=== PATIENT | male | born 1955 | race Caucasian/White ===

== ENCOUNTER 2021-12-14 02:01 | Outpatient (CLI) | payer MEDICARE, OTHER, SELFPAY ==
[2021-12-14 21:41] LABS: PSA, Screening 6.7 ng/mL (<=4.5)
== END 2021-12-14 02:02 | disposition home or self-care (01) ==
LOC: LBO 02:04
PROVIDERS: PCP Nurse Practitioner Family; Visit Provider Nurse Practitioner Family
DX: R35.0 Frequency of micturition (principal); Z12.5 Encounter for screening for malignant neoplasm of prostate
CPT/HCPCS: 36415; 84153

== ENCOUNTER 2022-12-25 02:34 | Outpatient (CLI) | payer MEDICARE, OTHER, SELFPAY ==
[2022-12-25 13:01] LABS: Anion Gap 6.3 mmol/L (3-11); BUN 19 mg/dL (7-18); CO2 31.7 mmol/L (21.0-32.0); Calcium 9.3 mg/dL (8.5-10.1); Chloride 107 mmol/L (98-107); Estimated GFR 81.98 (mL/min/1.73m2); Glucose 76 mg/dL (74-106); Potassium 3.9 mmol/L (3.5-5.1); Sodium 145 mmol/L (136-145)
[2022-12-26 17:26] LABS: Free PSA/PSA Ratio 0.19 ratio
== END 2022-12-25 02:35 | disposition home or self-care (01) ==
LOC: LOS 02:34
PROVIDERS: PCP Nurse Practitioner Family; Visit Provider Nurse Practitioner Family
DX: I10 Essential (primary) hypertension (principal); R97.20 Elevated prostate specific antigen [PSA]
CPT/HCPCS: 36415; 80048; 84154

== ENCOUNTER 2023-07-09 03:08 | Outpatient (CLI) | payer MEDICARE, OTHER, SELFPAY ==
[2023-07-09 23:05] LABS: PSA, Screening 7.8 ng/mL (<=4.5)
== END 2023-07-09 03:09 | disposition home or self-care (01) ==
LOC: LOS 03:08
PROVIDERS: PCP Nurse Practitioner Family; Visit Provider Nurse Practitioner Family
DX: R97.20 Elevated prostate specific antigen [PSA] (principal); Z12.5 Encounter for screening for malignant neoplasm of prostate
CPT/HCPCS: 36415; 84153

== ENCOUNTER → 2023-09-16 10:41 | Outpatient (BNVA) | payer MEDICARE, OTHER, SELFPAY | PROVIDERS: PCP Nurse Practitioner Family; Referring Provider Nurse Practitioner Family; Visit Provider Nurse Practitioner Gerontology | DX: R10.31 Right lower quadrant pain (principal); R97.20 Elevated prostate specific antigen [PSA] | CPT/HCPCS: 51798; 81003; 99205 ==

== ENCOUNTER → 2023-09-30 12:51 | Outpatient (BNVA) | payer MEDICARE, OTHER, SELFPAY | PROVIDERS: PCP Nurse Practitioner Family; Referring Provider Nurse Practitioner Gerontology; Visit Provider Surgery | DX: R10.31 Right lower quadrant pain (principal) | CPT/HCPCS: 99214 ==

== ENCOUNTER → 2023-10-10 00:43 | Outpatient (CLI) | payer MEDICARE, OTHER, SELFPAY ==
--- NOTE | 2023-10-10 08:00 | DI.CT_ITS ---
Exam(s) CT ABDOMEN PELVIS W EXAM: CT ABDOMEN PELVIS W CLINICAL HISTORY: pain and bulging of mesh at previous right hernia TECHNIQUE: Imaging Protocol: Axial computed tomography images with coronal and sagittal reformatted images were created and reviewed. CONTRAST MATERIAL: Intravenous: Omnipaque 350 Contrast volume:100 mL Oral: Yes COMPARISON: No exams were available for comparison FINDINGS: ABDOMEN: Lung Bases: Normal where visualized. Liver: Normal density. No measurable mass. Portal, Superior Mesenteric, and Splenic Veins: Unremarkable. Gallbladder and Biliary Tract: No radiodense calculus or dilation. Pancreas: Normal density, no abnormal calcifications or inflammatory process. Spleen: Normal. Adrenals: No suspicious adrenal nodule. Kidneys: Normal size, contour and axis. 5 mm nonobstructing stone in the lower pole of the left kidne y. No masses seen. Abdominal Aorta: Abdominal portion non-dilated. Atherosclerosis. Bowel: No obstruction or bowel wall thickening. Appendix is unremarkable. Peritoneal Cavity: No ascites, collection or mesenteric inflammatory response. No free air. Lymph Nodes: Within normal limits. Bones: Within normal limits for the patient's age. The patient has a right total hip replacement. T here is grade 1 anterolisthesis of L5 on S1. Soft Tissues: There is soft tissue thickening seen in the right inguinal region most consistent with prior right inguinal hernia repair. There is no evidence of a recurrent right inguinal hernia. No r ight inguinal adenopathy is seen. PELVIS: Bladder: There is diffuse thickening of the wall of the urinary bladder which may be due to chronic b ladder outlet obstruction, neurogenic bladder. Neoplasm is considered less likely but cannot be excl uded. Cystitis should also be come included in the differential. Clinical correlation is recommende d. Reproductive Organs: Marked prostatic enlargement. Lymph Nodes: Within normal limits. Bones: Within normal limits for the patient's age. IMPRESSION: 1. Postsurgical changes of a prior right inguinal hernia repair. No evidence of a recurrent right in guinal hernia. 2. Marked prostatic enlargement. 3. Diffuse thickening of the wall of the urinary bladder. This may be due to chronic bladder outlet obstruction secondary to the enlarged prostate gland. Cystitis or neoplasm cannot be entirely exclud ed. Please correlate clinically. 4. Left nephrolithiasis. No obstructive uropathy. RADIATION DOSE DELIVERED: 603.2mGy.cm Total DLP DATA REPOSITORY: All CT scans at this facility are submitted to the National Radiology Data Registry (NRDR) Dose Index Registry (DIR) with the [employer] ([employer]). RADIATION OPTIMIZATION: All CT scans at this facility use at least one of these dose optimization te chniques: automated exposure control; mA and/or kV adjustment per patient size (includes targeted exa ms where dose is matched to clinical indication); or iterative reconstruction.
[2023-10-10 13:30] LABS: CREATININE 0.9 mg/dL (0.70-1.30); Estimated GFR 92.45 (mL/min/1.73m2)
[2023-10-10] MEDS: Barium Sulfate 2% W/V-Creamy Vanilla Smoothie 450 ML BTL PO ×2 (14:47→15:12)
[2023-10-10] MEDS: Normal Saline - Diluent 50 ML VIAL IJ (15:09)
[2023-10-10] MEDS: Omnipaque 350 MG/ML 100 ML BTL IJ (15:09)
== END ==
PROVIDERS: PCP Nurse Practitioner Family; Visit Provider Surgery
DX: Z98.890 Other specified postprocedural states (principal); R10.9 Unspecified abdominal pain
CPT/HCPCS: 74177; 82565; J3490

== ENCOUNTER → 2023-10-27 13:49 | Outpatient (BNVA) | payer MEDICARE, OTHER, SELFPAY | PROVIDERS: PCP Nurse Practitioner Family; Visit Provider Surgery | DX: R10.31 Right lower quadrant pain (principal); Z96.641 Presence of right artificial hip joint | CPT/HCPCS: 99213 ==

== ENCOUNTER 2023-12-10 04:16 | Outpatient (CLI) | payer MEDICARE, OTHER, SELFPAY ==
[2023-12-10 20:04] LABS: PSA, Diagnostic 8.7 ng/mL (<=4.5)
== END 2023-12-10 04:17 | disposition home or self-care (01) ==
LOC: LBO 04:16
PROVIDERS: PCP Nurse Practitioner Family; Visit Provider Nurse Practitioner Gerontology
DX: R97.20 Elevated prostate specific antigen [PSA] (principal)
CPT/HCPCS: 36415; 84153

== ENCOUNTER → 2023-12-17 10:23 | Outpatient (BNVA) | payer MEDICARE, OTHER, SELFPAY | PROVIDERS: PCP Nurse Practitioner Family; Referring Provider Nurse Practitioner Family; Visit Provider Nurse Practitioner Gerontology | DX: R10.31 Right lower quadrant pain (principal); R97.20 Elevated prostate specific antigen [PSA] | CPT/HCPCS: 51798; 99213 ==

== ENCOUNTER → 2024-01-12 07:54 | Outpatient (BNVA) | payer MEDICARE, OTHER, SELFPAY | PROVIDERS: PCP Nurse Practitioner Family; Referring Provider Nurse Practitioner Family; Visit Provider Nurse Practitioner Gerontology | DX: N40.1 Benign prostatic hyperplasia with lower urinary tract symptoms (principal); N13.8 Other obstructive and reflux uropathy; R97.20 Elevated prostate specific antigen [PSA] | CPT/HCPCS: 99213 ==

== ENCOUNTER 2024-01-15 05:17 | Outpatient (CLI) | payer MEDICARE, OTHER, SELFPAY ==
[2024-01-15 13:05] LABS: Calculated LDL 90 mg/dL (<100); Cholesterol 161 mg/dL (<200); HDL Cholesterol 64 mg/dL (40-60); Triglyceride 37 mg/dL (<150)
== END 2024-01-15 05:18 | disposition home or self-care (01) ==
LOC: LOS 05:17
PROVIDERS: PCP Nurse Practitioner Family; Visit Provider Nurse Practitioner Family
DX: Z13.6 Encounter for screening for cardiovascular disorders (principal)
CPT/HCPCS: 36415; 80061

== ENCOUNTER 2024-07-05 03:12 | Outpatient (CLI) | payer MEDICARE, OTHER, SELFPAY | END 2024-07-05 03:13 | disposition home or self-care (01) | LOC: LBO 03:12 | PROVIDERS: PCP Nurse Practitioner Family; Visit Provider Nurse Practitioner Gerontology | DX: R97.20 Elevated prostate specific antigen [PSA] (principal) | CPT/HCPCS: 36415; 84153 ==

== ENCOUNTER → 2024-07-12 08:29 | Outpatient (BNVA) | payer MEDICARE, OTHER, SELFPAY | PROVIDERS: PCP Nurse Practitioner Family; Referring Provider Nurse Practitioner Family; Visit Provider Nurse Practitioner Gerontology | DX: N40.1 Benign prostatic hyperplasia with lower urinary tract symptoms (principal); N13.8 Other obstructive and reflux uropathy; R97.20 Elevated prostate specific antigen [PSA]; I10 Essential (primary) hypertension | CPT/HCPCS: 51798; 99213 ==

== ENCOUNTER 2025-01-03 04:32 | Outpatient (CLI) | payer MEDICARE, OTHER, SELFPAY ==
[2025-01-03 22:06] LABS: PSA, Diagnostic 12.3 ng/mL (<=6.5)
== END 2025-01-03 04:33 | disposition home or self-care (01) ==
LOC: LBO 04:32
PROVIDERS: PCP Nurse Practitioner Family; Visit Provider Nurse Practitioner Gerontology
DX: N40.1 Benign prostatic hyperplasia with lower urinary tract symptoms (principal); N13.8 Other obstructive and reflux uropathy; R97.20 Elevated prostate specific antigen [PSA]
CPT/HCPCS: 36415; 84153

== ENCOUNTER → 2025-01-10 14:47 | Outpatient (BNVA) | payer MEDICARE, OTHER, SELFPAY | PROVIDERS: PCP Nurse Practitioner Family; Referring Provider Nurse Practitioner Family; Visit Provider Nurse Practitioner Gerontology | DX: R97.20 Elevated prostate specific antigen [PSA] (principal); N40.1 Benign prostatic hyperplasia with lower urinary tract symptoms; N13.8 Other obstructive and reflux uropathy; Z80.42 Family history of malignant neoplasm of prostate; I10 Essential (primary) hypertension; R39.9 Unspecified symptoms and signs involving the genitourinary system | CPT/HCPCS: 99214; 51798 ==

== ENCOUNTER 2025-04-12 02:05 | Outpatient (CLI) | payer MEDICARE, OTHER, SELFPAY ==
[2025-04-12 22:24] LABS: PSA, Diagnostic 15.5 ng/mL (<=6.5)
== END 2025-04-12 02:06 | disposition home or self-care (01) ==
LOC: LBO 02:05
PROVIDERS: PCP Nurse Practitioner Family; Visit Provider Nurse Practitioner Gerontology
DX: N40.1 Benign prostatic hyperplasia with lower urinary tract symptoms (principal); N13.8 Other obstructive and reflux uropathy; R97.20 Elevated prostate specific antigen [PSA]; Z80.42 Family history of malignant neoplasm of prostate
CPT/HCPCS: 36415; 84153

== ENCOUNTER → 2025-04-19 14:51 | Outpatient (BNVA) | payer MEDICARE, OTHER, SELFPAY | PROVIDERS: PCP Nurse Practitioner Family; Referring Provider Nurse Practitioner Family; Visit Provider Nurse Practitioner Gerontology | DX: N40.1 Benign prostatic hyperplasia with lower urinary tract symptoms (principal); N13.8 Other obstructive and reflux uropathy; R97.20 Elevated prostate specific antigen [PSA]; Z80.42 Family history of malignant neoplasm of prostate; R39.9 Unspecified symptoms and signs involving the genitourinary system | CPT/HCPCS: 99213; 51798 ==

== ENCOUNTER → 2025-06-02 12:53 | Outpatient (BNVA) | payer MEDICARE, OTHER, SELFPAY | PROVIDERS: PCP Nurse Practitioner Family; Referring Provider Nurse Practitioner Family; Visit Provider Nurse Practitioner Gerontology | DX: N40.1 Benign prostatic hyperplasia with lower urinary tract symptoms (principal); N13.8 Other obstructive and reflux uropathy; R97.20 Elevated prostate specific antigen [PSA]; Z80.42 Family history of malignant neoplasm of prostate | CPT/HCPCS: 99214 ==

== ENCOUNTER → 2025-06-22 13:00 | Outpatient (BNVA) | payer MEDICARE, OTHER, SELFPAY | PROVIDERS: PCP Nurse Practitioner Family; Referring Provider Nurse Practitioner Family; Visit Provider Physical Therapy Assistant | DX: Z12.11 Encounter for screening for malignant neoplasm of colon (principal); Z80.0 Family history of malignant neoplasm of digestive organs | CPT/HCPCS: S0285 ==

== ENCOUNTER 2025-07-07 10:45 | Day surgery (SDC) | payer MEDICARE, OTHER, SELFPAY ==
--- NOTE | 2025-07-06 17:51 | W.ANESPRE ---
General Info Date of Service Date Performed: 07/07/25 Height: 5 ft 10.5 in Weight: 64.864 kg Body Mass Index (BMI): 20.2 Surgical Procedure: Operation Date: 07/07/25 12:20 Proposed Procedure Side Surgeon alexis Lara MD Meds Allergies and Home Medications Allergies Allergy/AdvReac Type Severity Reaction Status Date / Time No Known Allergies Allergy Verified 07/05/25 11:08 Home Medication Medication Instructions Recorded vitamin B complex 1 tab PO DAILY 09/16/23 ascorbic acid (vitamin C) 500 mg 500 mg PO DIRECTED PRN 09/30/23 capsule tamsulosin 0.4 mg capsule (Flomax) 0.8 mg (2 x 0.4 mg) PO HS #180 caps 03/10/25 bisacodyl 5 mg tablet,delayed 5 mg PO ONCE #4 tabs 06/22/25 release (Dulcolax (bisacodyl)) polyethylene glycol 3350 17 17 g PO ONCE #238 grams 06/22/25 gram/dose oral powder Current Visit Medications: Current Medications Generic Name Dose Route Start Last Admin Trade Name Freq PRN Reason Stop Dose Admin Ringer's Solution 1,000 mls @ 80 mls/hr 07/07/25 06:00 IV 07/07/25 23:59 INFUSION FABBY IV Miscellaneous Supplies 1 each 07/07/25 06:00 Iv Access IV 07/07/25 23:59 DIRECTED FABBY Sodium Biphosphate/Sodium Phosphate 133 ml 07/07/25 06:00 Na Phosphate Enema-Adult 133 Ml Btl MN 07/07/25 23:59 DIRECTED PRN Sodium Chloride 0 ml 07/07/25 06:00 Normal Saline Flush 10 Ml Syr IV 07/07/25 23:59 PRN PRN Sodium Chloride 0 ml 07/07/25 06:00 Normal Saline 10 Ml Vial IJ 07/07/25 23:59 DIRECTED PRN Sterile Water 0 ml 07/07/25 06:00 Water,Injection,Sterile 10 Ml Vial IJ 07/07/25 23:59 DIRECTED PRN PFSH Active Problems Active Problems: Problem Status Onset Code Family history of prostate cancer Acute Z80.42 BPH w urinary obs/LUTS Acute N40.1, N13.8 Inguinodynia Acute R10.30 Essential hypertension Acute I10 Elevated PSA Acute R97.20 Skin tag Acute L91.8 Idiopathic scoliosis Chronic M41.20 Hip joint replacement status Chronic Z96.649 Family history of GI malignancy Chronic Z80.0 Medical History Medical History Encounter for removal of skin lesion Tick bite with subsequent removal of tick Impacted cerumen of both ears Low back pain Surgical History Surgical History History of inguinal hernia repair Total replacement of hip (~05/1997) RIGHT Tobacco Smoking/Tobacco Use Status: Never Smokeless tobacco user: other Passive smoking exposure: Yes Second hand exposure: Yes Alcohol Alcohol Intake: current Alcohol intake frequency: a few times a week Alcohol type: beer and wine Substance Use Substance use: Never Substance use type: does not use Vital Signs and Lab Results Vital Signs Comment Vital Signs Comment:: Temp Pulse Resp BP Pulse Ox 36.2 C L 84 18 135/94 H 97 07/07/25 11:03 07/07/25 11:03 07/07/25 11:03 07/07/25 11:03 07/07/25 11:03 Anesthesia Assessment and Plan Anesthesia History Personal History: Other Family History: No Family History of Anesthesia Complications and Family History Unknown Exercise Tolerance Exercise Tolerance: Metabolic Equivalents>4 Pertinent Negatives Pertinent Negatives: No Symptoms of GERD, No Major Cardiovascular Symptoms or Complaints, No Major Pulmonary Symptoms or Complaints and No History of CVA/TIA Cardiac & Pulmonary Exam Cardiac Exam: Normal S1/S2 Heart Sounds Pulmonary Exam: Clear Bilateral Breath Sounds Implantable Cardiac Device Does patient have a Pacemaker or an ICD?: No Airway Exam Known Difficult Airway: No Mallampati Class: 1 Mouth Opening: Normal (> 3cm) Thyromental Distance: Greater than 3 cm Neck Range of Motion: Full ROM Neck Circumference: Normal Teeth Condition: Normal Dentition ASA Classification ASA Score: ASA 2 Emergency Case?: No NPO Status NPO Status: NPO Clears >2 hours, Solids >8 hours Anesthesia Plan Resuscitation Status: Full Code Anesthesia Technique: General Anesthesia Airway Planned: Natural Airway Monitors Used: Standard Monitors Preoperative Comments:: 70 y/o male with history of BPH, scoliosis and HTN presents for his first colonoscopy screening pre-op. He has a family history of colon cancer in his maternal grandfather. He denies any changes in bowel habits including bloody or black tarry stools, abdominal pain, diarrhea or constipation. He denies constitutional symptoms.
[2025-07-07 11:03] VITALS: BP 135/94; PULSE 84; RESP 18; TEMP 36.2; O2SAT 97
[2025-07-07] MEDS: Lactated Ringers 1,000 ML 80 ML IV (11:12)
--- NOTE | 2025-07-07 11:51 | W.PM.DSUDISC ---
Date of service: 07/07/25 Discharge Plan Disposition Patient Disposition: Home Condition: Stable Discharge Details Reason For Visit: Screening colonoscopy Attending Provider: Daina Lara Primary Care Provider: Eduardo Banerjee Home Meds and New Rx's Prescriptions: Continued vitamin B complex Tablet 1 tab PO DAILY ascorbic acid (vitamin C) 500 mg capsule 500 mg PO DIRECTED PRN tamsulosin [Flomax] 0.4 mg capsule 0.8 mg PO HS Qty: 180 3RF Discontinued bisacodyl [Dulcolax (bisacodyl)] 5 mg tablet,delayed release (DR/EC) 5 mg PO ONCE Qty: 4 0RF Rx Instructions: Take per colonoscopy instructions provided by ordering providers office polyethylene glycol 3350 17 gram/dose powder 17 g PO ONCE Qty: 238 0RF Rx Instructions: Take per colonoscopy instructions provided by ordering providers office Discharge Instructions Additional Instructions: Colonoscopy today showed three large polyps that I removed and three small ones. All of them have been removed completely. One in the rectum was quite large and I tattooed its location so we can know where to check again for regrowth in the future. When I find out what kind of polyps these are I will contact you and let you know when your next colonoscopy will need to be. If anything unexpected comes from the biopsies I will let you know as well. For now I am going to guess that you will need another colonoscopy in 1 year. Stand Alone Forms: Anesthesia Discharge Inst., Colonoscopy Post Instructions, Ilene Boothe (DSU), Portal Information Activity:: Activity as Tolerated Diet:: As Tolerated DS: Diagnosis Discharge Diagnosis (1) Encounter for screening colonoscopy: Status: Acute (2) Polyp of ascending colon: Status: Acute (3) Polyp of transverse colon: Status: Acute (4) Rectal polyp: Status: Acute
[2025-07-07 11:55] VITALS: BMI 20.2
--- NOTE | 2025-07-07 12:06 | W.COLOREPORT ---
Date of service: 07/07/25 Time of Service: 12:07 Colonoscopy Report Date of procedure: 07/07/25 Pre-op diagnosis general: Screening for colorectal cancer Post-op diagnosis procedure note: same (1. multiple ascending colon polyps. 2. transverse colon polyp. 3. rectum polyp. 4. distal rectum polyp. ) Procedure: Colonoscopy with hot snare and cold forceps polypectomy, tattoo Surgeon: Daina Lara Anesthesia Type: General:No Airway Estimated blood loss (mL): 0 Pathology: other (1. multiple ascending colon polyps. 2. transverse colon polyp. 3. rectum polyp. 4. base of rectum polyp. 5. distal rectum polyp) Complications: None Indications: screening for colorectal cancer Prep: Miralax/Dulcolax (Good/excellent) Procedure Description: Informed consent was obtained and the patient was taken to the procedure area. The patient was placed in left lateral decubitus position on the procedure table. Timeout was performed. Anesthesia was induced. A lubricated colonoscope was inserted through the anus and passed to the cecum. The cecum was identified by the ileocecal valve and the appendiceal orifice. The scope was then slowly withdrawn and the colonic and rectal mucosa examined. TI intubated and examined. It appears normal. Ascending colon 15mm pedunculated polyp removed with hot snare and retrieved with Khalil net. Fragmented the polyp. 8mm sessile polyp removed with hot snare and retrieved with polyp trap, piecemeal, removal and retrieval complete. 3mm sessile polyp removed with hot snare, removal and retrieval complete. All ascending colon polyps sent together as their proximity to one another was so close. Transverse colon 10mm pedunculated polyp removed with hot snare, retrieved with polyp trap. Removal and retrieval complete. Rectum at 25cm peducnulated polyp 10mm by 25mm. Hot snare polypectomy performed and polyp pulled directly through anus. Removal and retrieval complete. Base biopsied with cold forceps and sent separately. 1mL SPOT ink tattooed at base of lesion. Distal rectum 5mm sessile polyp excised with cold forceps. No diverticulosis was seen. The scope was retroflexed in the anorectal junction examined. Uncomplicated internal hemorrhoids present. Assessment and plan: Ascending colon polyps, three Transverse colon polyp rectum polyp distal rectum polyp Six polyps seen and removed. Three were larger sized pedunculated polyps with evidence of trauma to the polyps. Path pending, will follow up on results and determine timing of next colonoscopy. Will notify patient when available.
--- NOTE | 2025-07-07 12:32 | BOWEL_PTH ---
PATIENT: Pancho Courtney JR LOC: [facility] U#:[id number] AGE/SX: 70/M ROOM: RE07/07/[address]: Daina Lara MD : [id number] BED: DIS: 07/07/2025 SPEC #: [id number] RECD: 07/07/25 17:05 STATUS: NONA REAncelmo #: [id number] ALONSO: 07/07/25 12:[address]: Daina Lara DEPT: Surgical Specimen RECD BY: Cayla Cavazos ENTERED: 07/07/25 17:09 SP TYPE: Bowel OTHR DR: Eduardo Banerjee, RIBBER Tissues: 1 - BIOPSY BOWEL 2 - BIOPSY BOWEL 3 - BIOPSY BOWEL 4 - BIOPSY BOWEL 5 - BIOPSY BOWEL Procedures: GROSS AND MICRO LEVEL 4 Comments: [id number]
[2025-07-07] MEDS: Endoscopic Tattoo 5 ML SYR IJ (12:59)
[2025-07-07 13:07] VITALS: BP 119/80; PULSE 68; RESP 18; TEMP 36.2; O2SAT 96
--- NOTE | 2025-07-07 13:18 | W.ANESPOSTOP ---
Postoperative Evaluation Date, Time and Location Date Performed: 07/07/25 Time Performed: 13:15 Patient Location: Day [facility] Unit Vital Signs Most Recent Imported Vital Signs: Most Recent Vital Signs Temp Pulse Resp BP Pulse Ox 36.2 C L 68 18 119/80 96 07/07/25 13:07 07/07/25 13:07 07/07/25 13:07 07/07/25 13:07 07/07/25 13:07 Pain Score Most Recent Pain Score: Most Recent Pain Score Pain Level 0 07/07/25 13:07 Assessment Mental Status: Awake (Alert & Oriented to Patient Baseline) Airway and Respiratory Function: Patent airway with normal (patient baseline) respiratory exam Cardiovascular Function: Hemodynamically Stable Hydration Status: Adequately Hydrated Nausea & Vomiting: No Nausea or Vomiting Pain: Pt. Denies Any Pain Peripheral Nerve Block: Patient did not receive a nerve block
[2025-07-07 13:36] VITALS: BP 141/95; PULSE 66; RESP 18; TEMP 36.6; O2SAT 100
== END 2025-07-07 13:55 | disposition home or self-care (01) ==
PROVIDERS: PCP Nurse Practitioner Family; Visit Provider Surgery
PROC: 0DJD8ZZ Inspection of Lower Intestinal Tract, Via Natural or Artificial Opening Endoscopic (ICD-10-PCS; CPT 45378; principal; 2025-07-07 12:15)
DX: Z12.11 Encounter for screening for malignant neoplasm of colon (principal); D12.2 Benign neoplasm of ascending colon; D12.3 Benign neoplasm of transverse colon; K62.1 Rectal polyp; I10 Essential (primary) hypertension; Z80.0 Family history of malignant neoplasm of digestive organs; D37.4 Neoplasm of uncertain behavior of colon
CPT/HCPCS: 45385; 45380; 45381; 88305; J2003; J2704